=== PATIENT | female | born 1930 | race Caucasian/White ===

== ENCOUNTER 2017-04-29 12:21 | Outpatient (CLI) | payer MEDICARE, BC ==
[2017-04-29 14:14] LABS: #Eosinphils 0.3 thou/uL (0.0-0.7); #Lymphocytes 1.9 thou/uL (1.20-3.40); #Monocytes 0.6 thou/uL (0.11-0.59); #Neutrophils 2.9 thou/uL (1.40-6.50); %Basophils 0.5 % (0.0-1.0); %Lymphocytes 33.7 % (21.0-51.0); %Monocytes 10.5 % (0.0-10.0); Mean Platelet Volume 8.1 fL (7.4-10.4); Red Blood Cell (RBC) Count 3.67 mill/uL (4.20-5.40); White Blood Cell (WBC) Count 5.7 thou/uL (4.8-10.8)
[2017-04-29 14:49] LABS: ALT (SGPT) 9 U/L (8-55); AST (SGOT) 17 U/L (5-34); Alkaline Phosphatase 56 U/L (40-150); Anion Gap 12 mmol/L (10-20); BUN (Urea Nitrogen) 27 mg/dL (9.8-20.1); Bilirubin, Total 0.5 mg/dL (0.2-1.2); Calc. Creatinine Clearance 0 mL/min (70-130); Calcium 10.2 mg/dL (7.8-10.44); Carbon Dioxide 28 mmol/L (23-31); Chloride 106 mmol/L (98-107); Estimated GFR-MDRD 37; Globulin 3.1 g/dL (2.4-3.5); Protein, Total 7.1 g/dL (6.0-8.3)
== END 2017-04-29 12:22 | disposition home or self-care (01) ==
LOC: LABBT 12:21
PROVIDERS: ATTEND Surgery
DX: Z01.818 Encounter for other preprocedural examination (principal); K43.9 Ventral hernia without obstruction or gangrene
CPT/HCPCS: 80053; 85025; 93005; 93010

== ENCOUNTER 2017-05-06 06:10 | Day surgery (SDC) | payer MEDICARE, BC ==
[2017-04-29 12:45] VITALS: BMI 26.5
[2017-05-06] MEDS ORDERED: CEFAZOLIN/Water 2 GM/20 ML SYRINGE ONE (06:42)
[2017-05-06] MEDS ORDERED: Levofloxacin 500 mg/D5W 100 ml Premix Bag ONE (07:13)
--- NOTE | 2017-05-06 07:18 | HP ---
CHIEF COMPLAINT: Epigastric hernia. HISTORY: The patient is an 86-year-old female who has had an epigastric hernia for years. The herni a has become larger and more painful. The CT scan shows that it contains fat, but no bowel. She is not vomiting. PAST MEDICAL HISTORY: Hypertension, hyperlipidemia, gout. PAST SURGICAL HISTORY: She has had an appendectomy, hysterectomy, cholecystectomy, and a previous he rnia repair. MEDICATIONS: Allopurinol, aspirin, Lipitor, Lumigan, Os-Marcelo, carboxymethylcellulose, magnesium chlor jennifer, Lopressor, multivitamins, Protonix, Forteo, colchicine. ALLERGIES: PENICILLIN, CODEINE, and SULFA. FAMILY HISTORY: Both parents are , unknown causes. SOCIAL HISTORY: She is . No tobacco or alcohol. PHYSICAL EXAMINATION: VITAL SIGNS: Height 5 foot 2, weight 149, body mass index of 26.8. Blood pressure 129/80, pulse 73. GENERAL: Well-developed, well-nourished female in no apparent distress. HEENT: Unremarkable. LUNGS: Clear. HEART: Regular rate and rhythm. ABDOMEN: Soft, but she has a 4 cm soft, mildly tender mass in the midepigastric region. EXTREMITIES: Good pulses. No pedal edema. ASSESSMENT: Epigastric hernia. PLAN: Epigastric hernia repair with possible mesh. CONSENT: I have discussed the planned procedure as well as risk of bleeding, infection, recurrence. She understands and gives informed consent.
[2017-05-06] MEDS ORDERED: Lidocaine 2% w/Epinephrine 1:200K 20 ML VIAL ONE (07:53)
[2017-05-06] MEDS ORDERED: Bupivacaine/Epinephrine 0.25% 30 ML VIAL ONE (07:54)
[2017-05-06] MEDS ORDERED: Lidocaine 2% Jelly 5 ML TUBE ONE (07:55)
[2017-05-06] MEDS ORDERED: Midazolam HCl 2 mg/2 ml Vial ONE (07:55)
[2017-05-06] MEDS ORDERED: Fentanyl 100 MCG/2 ML VIAL ONE ×3 (07:55→09:54)
[2017-05-06] MEDS ORDERED: Ondansetron HCl/PF 4 MG/2 ML Vial ONE ×2 (09:12→16:02)
--- NOTE | 2017-05-06 10:05 | OP ---
PREOPERATIVE DIAGNOSIS: Epigastric hernia. SURGEON: Darrell Baires M.D. PROCEDURE PERFORMED: Epigastric hernia repair with mesh. INDICATIONS: This is an 86-year-old female with painful enlarging masses in the epigastrium, found t o have a hernia. FINDINGS: About a 1.5 cm defect, but about 6 cm of fatty tissue that prolapses, 6.4 cm piece of Proc eed mesh used. DESCRIPTION OF PROCEDURE: After informed consent was obtained, the patient was taken to the operatin g room and given general mask anesthesia and placed in the supine position. The abdomen was prepped and draped in the usual fashion. Local anesthesia infiltrated subcutaneously and deep. An upper mid line incision was performed. Subcu divided sharply. The hernia sac was encountered. It was dissecte d circumferentially down to the fascia. The sac was incised and excised and the contents reduced. A reduction was maintained with 6.4 cm Proceed mesh, it was hydrated and then inserted intraabdominall y, spread out subfascially and sutured to the fascia with interrupted 0 Ethibond suture. Hemostasis assured with electrocautery. Wound irrigated. Subcutaneous reapproximated with interrupted 3-0 Vicr yl. Skin closed with a running subcuticular 4-0 Rapide. Dermabond applied. The patient tolerated t he procedure well and transferred to recovery in good condition. Sponge and needle count verified co rrect x2.
[2017-05-06] MEDS ORDERED: Acetaminophen 500 MG TAB ONE (11:21)
[2017-05-06] MEDS ORDERED: Lidocaine 1% PF 5 ML VIAL ONE (16:02)
[2017-05-06] MEDS ORDERED: Dexamethasone 20 MG/5 ML VIAL ONE (16:02)
[2017-05-06] MEDS ORDERED: Propofol 200 MG/20 ML VIAL ONE (16:02)
[2017-05-06] MEDS ORDERED: Glycopyrrolate 0.2 MG/ML 5 ML SYRINGE ONE (16:02)
== END 2017-05-06 12:30 | disposition home or self-care (01) ==
LOC: SDC 06:10
PROVIDERS: ATTEND Surgery
PROC: 0WUF0JZ Supplement Abdominal Wall with Synthetic Substitute, Open Approach (ICD-10-PCS; principal; 2017-05-06)
DX: K43.9 Ventral hernia without obstruction or gangrene (principal); E78.5 Hyperlipidemia, unspecified; M10.9 Gout, unspecified; I25.2 Old myocardial infarction; H40.9 Unspecified glaucoma; M19.90 Unspecified osteoarthritis, unspecified site; I12.9 Hypertensive chronic kidney disease with stage 1 through stage 4 chronic kidney disease, or unspecified chronic kidney disease; N18.9 Chronic kidney disease, unspecified; Z79.82 Long term (current) use of aspirin; Z79.899 Other long term (current) drug therapy; Z88.5 Allergy status to narcotic agent; Z88.0 Allergy status to penicillin; Z88.2 Allergy status to sulfonamides; Z95.818 Presence of other cardiac implants and grafts; Z90.49 Acquired absence of other specified parts of digestive tract; Z90.710 Acquired absence of both cervix and uterus; Z98.890 Other specified postprocedural states
CPT/HCPCS: 49570; 96374 ×2; C1781; J1100; J1956; J2001; J2250; J2405; J2704; J3010

== ENCOUNTER 2018-01-04 09:08 | Outpatient (CLI) | payer MEDICARE, BC | END 2018-01-04 09:09 | disposition home or self-care (01) | LOC: BICCT 09:08 | PROVIDERS: ATTEND Internal Medicine Geriatric Medicine | DX: R10.84 Generalized abdominal pain (principal); K44.9 Diaphragmatic hernia without obstruction or gangrene; K57.30 Diverticulosis of large intestine without perforation or abscess without bleeding | CPT/HCPCS: 74176 ==

== ENCOUNTER 2018-11-21 13:03 | Outpatient (CLI) | payer MEDICARE, BC ==
--- NOTE | 2018-11-21 13:33 | RAD ---
EXAM: XR Cerv Sp Ap Lat STANDARD PROVIDED CLINICAL HISTORY: Cervicalgia. Neck pain and right arm pain. COMPARISON: 01/01/2013 obtained from [facility] FINDINGS: C1 to the cervicothoracic junction is seen on the lateral view. As noted on the prior exam, there is anterolisthesis of C5 on C6, but the degree of listhesis has increased previously measuring approximately 3 mm and now measures 4 mm. Trace anterolisthesis of C4 on C5 is present. Multilevel facet hypertrophic and degenerative changes are present with prominent degenerative change s again seen at the C6-7 level with loss of intervertebral disc height and prominent endplate degenerative changes. Prominent osteophytes are seen anteriorly as well as posteriorly at this level. Prominent osteophytes are seen anteriorly at the level of the C3 vertebral body. The odontoid is partially obscured on the odontoid view due to overlying structures limit evaluation. No fracture is identified. The vertebral body heights appear to be within normal limits. Prevertebral soft tissues are within normal limits. Vascular calcifications are seen overlying the right neck. IMPRESSION: Multilevel degenerative changes in the cervical spine. There has been slight interval increase in deg ree of anterolisthesis at the C5-6 level which now measures approximately 4 mm. Trace anterolisthesis of C4 on C5 is present.
== END 2018-11-21 13:04 | disposition home or self-care (01) ==
LOC: BICRAD 13:03
PROVIDERS: ATTEND Internal Medicine Rheumatology
DX: M54.2 Cervicalgia (principal); M47.812 Spondylosis without myelopathy or radiculopathy, cervical region; M43.12 Spondylolisthesis, cervical region
CPT/HCPCS: 72040

== ENCOUNTER 2018-12-07 07:57 | Outpatient (CLI) | payer MEDICARE, BC ==
--- NOTE | 2018-12-07 09:12 | RAD ---
XR Cerv Sp Ap Lat 3 views: 12/07/2018 12:00 AM CLINICAL INDICATION: Neck pain, cervical radiculopathy COMPARISON: 11/21/2018 FINDINGS: Fracture:No compression fracture Arthropathy:There is severe multilevel degenerative change of the cervical spine. Grade I spondylolis thesis involves C5-6. Mild retrolisthesis at C6-7. Obliteration of the C6-7 disc space. Multilevel facet osteoarthritis No significant abnormal translational motion is evident. IMPRESSION: 1. Severe multilevel degenerative change of the cervical spine. Grossly stable spondylolisthesis at C 5-6 without discernible translational motion of significance.
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
== END 2018-12-07 07:58 | disposition home or self-care (01) ==
LOC: SCSMRI 07:57
PROVIDERS: ATTEND Neurological Surgery
DX: M47.22 Other spondylosis with radiculopathy, cervical region (principal); M43.12 Spondylolisthesis, cervical region
CPT/HCPCS: 72040; 72141

== ENCOUNTER 2019-04-04 10:07 | Outpatient (CLI) | payer MEDICARE, BC ==
--- NOTE | 2019-04-04 11:13 | BD ---
DEXA BONE DENSITY STUDY: HISTORY: Postmenopausal. LUMBAR SPINE BMD (g/cm2) T-SCORE L1 1.242 +2.3 L2 1.212 +1.7 L3 1.329 +2.2 L4 1.394 +3.0 TOTAL 1.295 +2.3 LEFT FEMORAL NECK 0.737 -1.0 TOTAL 0.947 +0.0 IMPRESSION: 1. Normal bone mineral density of the lumbar spine and left femoral neck. 2. The 10 year fracture risk for a major osteoporotic fracture is 28% and for a hip fracture is 8.1%. These fracture probabilities are calculated for an untreated patient. POS: [facility]
== END 2019-04-04 10:08 | disposition home or self-care (01) ==
LOC: BICMAMMO 10:07
PROVIDERS: ATTEND Internal Medicine Rheumatology
DX: M81.0 Age-related osteoporosis without current pathological fracture (principal)
CPT/HCPCS: 77080

== ENCOUNTER 2019-04-19 16:08 | Outpatient (CLI) | payer MEDICARE, BC ==
--- NOTE | 2019-04-19 16:46 | RAD ---
XR Knee Rt 2 View: 04/19/2019 12:00 AM CLINICAL INDICATION: Right knee pain COMPARISON: None. FINDINGS: Bones: No acute fracture is demonstrated. Joints: There is mild joint capsular distention. There is mild/moderate osteoarthrosis of the right k nee. Small ossific densities overlie the tibial spines which is likely degenerative in nature.. Soft Tissue: No acute abnormality.. IMPRESSION: Moderate osteoarthrosis of the right knee. Mild joint capsular distention.
== END 2019-04-19 16:09 | disposition home or self-care (01) ==
LOC: SCSRAD 16:08
PROVIDERS: ATTEND Internal Medicine Rheumatology
DX: M17.11 Unilateral primary osteoarthritis, right knee (principal)

== ENCOUNTER 2021-04-14 13:59 | Outpatient (CLI) | payer MEDICARE, BC | END 2021-04-14 14:00 | disposition home or self-care (01) | LOC: BICMAMMO 13:59 | PROVIDERS: ATTEND Internal Medicine Rheumatology | DX: M80.00XA Age-related osteoporosis with current pathological fracture, unspecified site, initial encounter for fracture (principal); M85.832 Other specified disorders of bone density and structure, left forearm | CPT/HCPCS: 77080 ==